=== PATIENT | female | born 1990 | race Caucasian/White ===

== ENCOUNTER 2018-10-04 17:49 | Inpatient (IN) | payer OTHER ==
[2018-10-04] MEDS: LACTATED RINGER'S 1,000 ML IV ×2 (18:45→21:43)
[2018-10-04] MEDS: MAGNESIUM SULFATE 4 GM/100 ML 100 ML IV (18:48)
[2018-10-04 19:13] LABS: ADD MAN DIFF? NO
[2018-10-04 19:14] LABS: BASOPHIL # 0.1 10^3/ul (0.0-0.1); BASOPHILS % 0.5 % (0.0-2.0); EOSINOPHILS # 0.2 10^3/ul (0.0-0.5); EOSINOPHILS % 1.8 % (0.0-7.0); HEMATOCRIT 32.2 % (37.0-47.0); HEMOGLOBIN 11.2 g/dl (12.0-16.0); LYMPHOCYTES # 2.3 10^3/ul (0.8-2.9); LYMPHOCYTES % 23.6 % (15.0-51.0); MEAN CORPUSCULAR HEMOGLOBIN 29.9 pg (29.0-33.0); MEAN CORPUSCULAR HGB CONC 34.8 g/dl (32.0-37.0); MEAN CORPUSCULAR VOLUME 86.1 fl (82.0-101.0); MEAN PLATELET VOLUME 10.2 fl (7.4-10.4); MONOCYTE # 0.7 10^3/ul (0.3-0.9); MONOCYTES % 6.8 % (0.0-11.0); NEUTROPHIL # 6.5 10^3/ul (1.6-7.5); PLATELET COUNT 234 10^3/UL (140-415); RED BLOOD COUNT 3.74 10^6/ul (4.20-5.40); RED CELL DISTRIBUTION WIDTH 13.4 % (11.5-14.5)
[2018-10-04 19:14] LABS: WHITE BLOOD COUNT 9.7 10^3/ul (4.8-10.8)
[2018-10-04] MEDS: MAGNESIUM SULFATE 20 GM/500 ML 500 ML IV (19:21)
[2018-10-04 19:33] LABS: ALANINE AMINOTRANSFERASE 14 IU/L (13-69); ALBUMIN 4.1 g/dl (3.3-4.9); ALBUMIN/GLOBULIN RATIO 1.17; ALKALINE PHOSPHATASE 95 IU/L (42-121); ANION GAP 10 (5-13); ASPARTATE AMINO TRANSFERASE 18 IU/L (15-46); BILIRUBIN,INDIRECT 0.4 mg/dl (0-1.1); BILIRUBIN,TOTAL 0.4 mg/dl (0.2-1.3); BLOOD UREA NITROGEN 6 mg/dl (7-20); CALCIUM 9.9 mg/dl (8.4-10.2); CARBON DIOXIDE 19 mmol/L (21-31); CHLORIDE 108 mmol/L (97-110); CREATININE 0.42 mg/dl (0.44-1.00); Estimated GFR > 60 mL/min (>60); GLUCOSE 101 mg/dl (70-220); SODIUM 137 mmol/L (135-144); TOTAL PROTEIN 7.6 g/dl (6.1-8.1)
[2018-10-04 19:34] LABS: INR 0.94; PROTIME 12.7 Sec (11.9-14.9)
[2018-10-04 19:35] LABS: PARTIAL THROMBOPLASTIN TIME 26.4 Sec (23.0-35.0)
[2018-10-04 20:26] LABS: ADD UMIC NO; UR ASCORBIC ACID NEGATIVE (NEGATIVE); UR BILIRUBIN (Dip) NEGATIVE (NEGATIVE); UR BLOOD (Dip) NEGATIVE (NEGATIVE); UR CLARITY CLEAR (CLEAR); UR COLOR COLORLESS (YELLOW); UR GLUCOSE (Dip) NEGATIVE (NEGATIVE); UR KETONES (Dip) NEGATIVE (NEGATIVE); UR LEUKOCYTE ESTERASE (Dip) NEGATIVE Leu/ul (NEGATIVE); UR NITRITE (Dip) NEGATIVE (NEGATIVE); UR SPECIFIC GRAVITY (Dip) 1.001 (1.003-1.030); UR TOTAL PROTEIN (Dip) NEGATIVE (NEGATIVE); UR UROBILINOGEN (Dip) NEGATIVE (NEGATIVE)
[2018-10-04] MEDS: BETAMET NA PHOS/AC(6 MG/ML) 2 ML INJ SYG IM (20:39)
[2018-10-05 01:08] LABS: MAGNESIUM 4.4 mg/dl (1.7-2.5)
[2018-10-05] MEDS: MAGNESIUM SULFATE 20 GM/500 ML 500 ML IV ×2 (05:36→13:57)
[2018-10-05 07:43] LABS: MAGNESIUM 5.6 mg/dl (1.7-2.5)
[2018-10-05] MEDS: GENTAMICIN 80 MG/NS (PMX) 50 ML IVPB (09:15)
[2018-10-05] MEDS: BUTORPHANOL 2 MG INJ IV ×2 (09:18→12:34)
[2018-10-05] MEDS: LACTATED RINGER'S 1,000 ML IV (11:20)
[2018-10-05 22:29] LABS: RAPID PLASMA REAGIN NONREACTIVE (NR)
== END 2018-10-05 16:10 | disposition other institution (70) | DRG 776 ==
LOC: OBT 17:49 → L-D 17:51 → OBT 18:05 → L-D 18:05
DX: O43.212 Placenta accreta, second trimester (principal); O26.872 Cervical shortening, second trimester; Z3A.27 27 weeks gestation of pregnancy
CPT/HCPCS: 76815; 80053; 81003; 83735; 85025; 85610; 85730; 86592; 86850; 86900; 86901; 86920; 87086